=== PATIENT | male | born 1955 | race Caucasian/White ===

== ENCOUNTER 2016-09-04 20:02 | Emergency (ER) | payer OTHER ==
[~2016-09-04] VITALS: Ht 170.2 cm; Wt 165.0 kg
[2016-09-04 20:13] VITALS: BP 144/100; PULSE 102; RESP 16; O2SAT 98
--- NOTE | 2016-09-04 21:17 | ED.REPORT ---
HPI-General Illness Date of Service Sep 04, 2016 ED Provider: Smith Sanchez MD 61 year old male with a history of BPH who presents to the ED due to urinary retention. Pt has been getting up in the middle of the night with urinary urgency, but has been unable to urinate. He has severe pain secondary to the retention. Pt is currently being seen by his PCP and is being prescribed Flomax for this. Pt recently finished a course of antibiotics for UTI. He has also been taking AZO pills. Nursing Notes Stated Complaint: CANT URINATE Chief Complaint: Male Abdominal Pain Nursing Notes Reviewed: Yes Allergies: Uncoded Allergies: ERYTHROMYCIN (Allergy, Intermediate, shaking, 09/04/16) Scheduled PRN Oxybutynin Chloride (Oxybutynin Chloride) 5 Mg Tablet 5 MG PO TID PRN PRN For Spasm General Time Seen by MD: 20:20 Chief Complaint Other (urinary retention) Hx Obtained From: Patient, Spouse Arrived By: Walk-in Sudden in Onset?: No Symptom Duration: Intermittent Location: : Abdomen Quality: Painful Severity: Current: Severe Associated with: Denies: Cough, Shortness of breath Pertinent Negative: Relieved by nothing Recent Healthcare: Recent doctor visit Past Medical History Past Medical History BPH Past Surgical History None reported Smoking History Never Smoker Social History Alcohol Use: Denies alcohol use Drug Use: Denies drug use Other Social History: Good social support, Ambulatory Status Independent Review of Systems Full Review of Systems Constitutional: Denies: Chills, Fever Respiratory: Denies: Dyspnea on exertion, Non-productive cough, Shortness of breath Cardiovascular: Denies: Chest pain, Edema GI: Reports: Abdominal pain, Denies: Nausea, Vomiting Male: Reports Urinary urgency, Reports Urination decreased (retention), Denies Dysuria, Denies Hematuria Skin: Denies Diaphoresis, Denies Rash Neurologic: Denies: Change LOC Complete sys rev & neg: except as marked. Physical Exam Vital Signs Vital Signs Date Time Temp Pulse Resp B/P Pulse Ox O2 Delivery O2 Flow Rate FiO2 09/04/16 22:43 138/98 09/04/16 22:03 74 18 152/93 95 Room Air 09/04/16 20:13 36.6 102 16 144/100 98 Room Air Initial VS: Reviewed General/Constitutional: Well-developed, Well-nourished Head / Eyes: Atraumatic, Normocephalic, PERRL ENT: Mucous membranes moist, Conjunctiva normal, No scleral icterus Neck: Supple, Non-tender, Full range of motion Respiratory: Breath sounds normal, Clear to auscultation, No respiratory distress Cardiovascular: Regular rate & rhythm, Heart sounds normal, Intact distal pulses Abdomen / GI: Soft (No suprapubic tenderness), Non-tender, No guarding, No rebound, No distention Back: No CVA tenderness Extremities: Vascular intact, Neuro intact Skin: Warm, Dry, No cyanosis Neurologic: Alert, Oriented, Nonfocal Psychiatric: Mood/affect normal, Behavior normal, Normal thought content Male Genitourinary: Inspection NL (circumsized), Penis NL, No penile discharge , No meatal blood Morgan placed in good position Interpretation & Diagnostics Lab Results Interpretation Test 09/04/16 20:39 Hold Urine Received (Received) General Lab Results Interp 1: Labs reviewed Re-Eval/Medical Decision Med Decision/Clinical Course 61 year old male with a history of BPH who presents to the ED due to urinary retention. Pt has been getting up in the middle of the night with urinary urgency, but has been unable to urinate. He has severe pain secondary to the retention over the last 24 hours. On arrival the patient is borderline tachycardic though afebrile, he appears quite uncomfortable. Morgan catheter was placed and greater than 1 L of urine was drained from his bladder. He reported immediate relief of his symptoms. His tachycardia resolved. Urinalysis demonstrated no findings of UTI. Overall presentation was consistent with bladder outlet obstruction. He is now voiding using Morgan catheter. The patient is already established urologist and will call tomorrow for an appointment. Serial abdominal examinations were benign and there are no findings suggestive of acute surgical intra-abdominal process. I do not feel that further workup or imaging studies are immediately indicated. Will likely require cystoscopy and additional workup for etiologies of his L obstruction. Postreduction precautions were reviewed in detail and he was discharged in good condition with indwelling Morgan catheter in place. Oxybutynin was provided for bladder spasms. Source of Hx: Old records Summary of Info: CT KUB IMPRESSION from earlier today 09/04/16: 1. No renal stone or hydronephrosis. 2. Large posterior left urinary bladder diverticulum. There is circumferential wall thickening involving the ostium of the diverticulum which could be due to nondistention versus infiltrating process. Please correlate with clinical and urinalysis data. 3. The appendix is normal. 4. Colonic diverticulosis without evidence of diverticulitis. 5. No free fluid or air. 6. No dilated loops of bowel. Dictated by: Tamara Romero MD, PhD on 09/04/2016 at 14:47 Time of Eval: 22:04 Re-Evaluation/Progress Note: 1.5 L after morgan was placed. Pain improved. Discussed plan for discharge and follow up. All questions addressed. Counseled Regarding: Diagnosis, Lab results, Need for follow-up, When/why to return to ED Discharge & Departure Primary Impression: Urinary retention Additional Impressions: Bladder outlet obstruction Abdominal pain Abdominal location: lower abdomen Qualified Code: R10.30 - Lower abdominal pain, unspecified Tachycardia History of BPH Disposition: Home Discharge Condition All VS Reviewed: Yes Condition: Improved Patient Instructions: Urinary Retention in Men (ED) Additional Instructions: Thank you for seeking care at [facility] emergency room. It is difficult for us to make definitive diagnoses in the ED but we believe that you are experiencing urinary retention. Our primary goal today in the ED was to evaluate you for any life-threatening conditions. Your evaluation was reassuring. There was no sign of UTI. You will be discharged with a prescription for Oxybutynin. This should help with bladder spasm. You should call the urologist tomorrow to schedule an appointment this week. You will need to keep the catheter in until you follow up with the urologist. You should return to the ED immediately if you develop fevers, vomiting, cough , shortness of breath, chest pain, lightheadedness, weakness or any other concerning signs or symptoms. Thank you for letting us partake in your care today. Referrals: [facility] (PCP) Cass Thorpe MD Scribe Attestation Portions of this note were transcribed by Amira Joseph. I, (Dr. Sanchez) personally performed the history, physical exam and medical decision-making; I reviewed and confirmed the accuracy of the information in the transcribed note. Signed by: Amira Joseph. 09/04/2016, 3794 copies to: Cass Thorpe MD; [facility] Smith Sanchez MD Sep 04, 2016 21:17 Amira Joseph Sep 04, 2016 22:16
[2016-09-04 22:03] VITALS: BP 152/93; PULSE 74; RESP 18; O2SAT 95
[2016-09-04] MEDS ORDERED: OXYB5TAB10 PO (22:17)
[2016-09-04 22:43] VITALS: BP 138/98
== END 2016-09-04 22:44 | disposition home or self-care (01) ==
LOC: SED 20:02
DX: R33.9 Retention of urine, unspecified (principal); N32.0 Bladder-neck obstruction; R10.30 Lower abdominal pain, unspecified; R00.0 Tachycardia, unspecified; Z87.438 Personal history of other diseases of male genital organs; Z87.440 Personal history of urinary (tract) infections

== ENCOUNTER 2016-09-25 12:25 | Emergency (ER) | payer OTHER ==
[~2016-09-25 12:25] MED LIST: OXYB5TAB10 PO
[2016-09-25 12:28] VITALS: BP 147/97; PULSE 79; RESP 14; O2SAT 98
--- NOTE | 2016-09-25 12:38 | ED.REPORT ---
HPI-General Illness Date of Service Sep 25, 2016 ED Provider: Balwinder is an otherwise healthy 61-year-old male with a chief complaint of blood in his urine. He currently wears a Silver catheter because of urinary retention. He woke this morning to notice a significant amount of bright red urine and blood clots in the bag. He reports some stinging sensation when he urinates, and has noticed a small amount of blood around the meatus of his penis. He was seen in this department approximately 3 weeks ago, when the first Silver was placed. He was actually seen by her scheduled urology, placed on tamsulosin. He was taken off Tamsulosin due to side effects about 2 weeks ago. Seen subsequently at the [place] approximately 4 days ago. They confirmed that he has enlarged prostate, advised him to continue using the Silver and arranged cystoscopy on the . He has a history in 2010 of cystoscopy that revealed diverticulum. Denies fever, chills, malaise, abdominal pain, back pain , trauma. Nursing Notes Stated Complaint: BLOOD IN URINE Chief Complaint: Male Abdominal Pain Nursing Notes Reviewed: Yes Allergies: Uncoded Allergies: ERYTHROMYCIN (Allergy, Intermediate, shaking, 09/04/16) Scheduled Ciprofloxacin (Ciprofloxacin) 500 Mg Tablet 500 MG PO BID General Time Seen by MD: 12:38 Chief Complaint Other Past Medical History Past Medical History BPH Past Surgical History None reported Smoking History Never Smoker Social History Alcohol Use: Denies alcohol use Drug Use: Denies drug use Other Social History: Good social support, Ambulatory Status Independent Review of Systems General: Denies fever, chills, malaise. HEENT: Denies congestion, headache, sore throat. Respiratory: Denies dyspnea, cough, shortness of breath, wheezing. Cardiovascular: Denies chest pain, palpitations. Gastrointestinal: Denies vomiting, diarrhea, abdominal pain. Genitourinary: Admits hematuria, dysuria Otherwise as noted in HPI. Physical Exam General: Well appearing, well developed, well nourished, no acute distress. Head: Atraumatic, normocephalic. Eyes: No scleral icterus or injection. No discharge. Vision grossly intact. ENT: Voice clear, hearing grossly intact. Respiratory: Regular rate and rhythm. Breath sounds present, clear to auscultation and equal bilaterally. Cardiovascular: Regular rate and rhythm, without murmur, gallop or rub. No pedal edema. Gastrointestinal: Abdomen flat and non-tender without guarding or rebound. Bowel sounds normoactive. Skin: Warm and dry. Genitourinary: Normal circumcised penis, without lesions or discharge. Normal testes descended bilaterally without tenderness or mass Neurological: Grossly nonfocal. Psychological: Alert and oriented. Speech appropriate, linear and logical. Behavior appropriate. Vital Signs Vital Signs Date Time Temp Pulse Resp B/P Pulse Ox O2 Delivery O2 Flow Rate FiO2 09/25/16 17:48 78 17 141/69 99 Room Air 09/25/16 12:28 37 79 14 147/97 98 Room Air Initial VS: Reviewed Interpretation & Diagnostics Lab Results Interpretation Result Diagram: 09/25/16 1346 09/25/16 1346 Test 09/25/16 13:46 09/25/16 16:01 White Blood Count 10.1th/mm3 (3.8-10.1) Red Blood Count 5.18mil/mm3 (4.40-5.80) Hemoglobin 15.8g/dL (13.8-17.2) Hematocrit 47.7% (41.0-50.0) Mean Corpuscular Volume 92.1fL (81-100) Mean Corpuscular Hemoglobin 30.5pg (27.0-35.0) Mean Corpuscular Hemoglobin Concent 33.1% (32.0-37.0) Red Cell Distribution Width 12.0% (12.3-15.4) Platelet Count 230bil/L (150-400) Neutrophils (%) (Auto) 80.4% (40-74) Lymphocytes (%) (Auto) 11.2% (14-46) Monocytes (%) (Auto) 6.5% (4-12) Eosinophils (%) (Auto) 1.5% (0-5) Basophils (%) (Auto) 0.2% (0-3) Sodium Level 138mEq/L (134-144) Potassium Level 4.9mEq/L (3.5-5.2) Chloride Level 98mEq/L (97-108) Carbon Dioxide Level 25mmol/L (18-29) Blood Urea Nitrogen 15mg/dL (6-24) Creatinine 1.22mg/dL (0.76-1.27) Estimat Glomerular Filtration Rate 65mL/min (>59) Glucose Level 92mg/dL (60-99) Calcium Level 9.0mg/dL (8.5-10.1) Total Bilirubin 0.4mg/dL (0.0-1.2) Aspartate Amino Transf (AST/SGOT) 17U/L (0-50) Alanine Aminotransferase (ALT/SGPT) 11U/L (0-44) Alkaline Phosphatase 56U/L (25-160) Total Protein 7.0g/dL (6.4-8.4) Albumin 4.4g/dL (3.4-5.0) Hold Tompkins Top Tube Received (Received) Urine Color Bloody (YELLOW) Urine Appearance Cloudy (CLEAR,HAZY) Urine pH 6.5 (5.0-8.0) Urine Specific [place] 1.015 (1.003-1.035) Urine Protein 300mg/dL (NEG,TRACE) Urine Glucose (UA) 100mg/dL (NEGATIVE) Urine Ketones 15mg/dL (NEGATIVE) Urine Occult Blood Large (NEGATIVE) Urine Nitrite Positive (NEGATIVE) Urine Bilirubin Negative (NEGATIVE) Urine Urobilinogen 4.0mg/dL (NORMAL) Urine Leukocyte Esterase Large (NEGATIVE) Urine RBC 11-50/hpf (0-2) Urine WBC 11-50/hpf (0-5) Urine Epithelial Cells None/hpf (NONE-MOD) Urine Crystals None seen (NONE SEEN) Urine Bacteria Few/hpf (NONE-FEW) Urine Hyaline Casts None/lpf (NONE) Urine Granular Casts None seen (NONE SEEN) Urine Waxy Casts None seen (NONE SEEN) Urine Red Blood Cell Casts None seen (NONE SEEN) Urine White Blood Cell Casts None seen (NONE SEEN) Urine Mucus Present (None Seen) Urine Trichomonas None seen (NONE SEEN) Urine Yeast None (NONE SEEN) Urinalysis Comment None Urine Culture Reflexed Indicated Re-Eval/Medical Decision Med Decision/Clinical Course 61-year-old male presents with chief complaint of speech area. He noticed blood and clots in his leg bag when he woke this morning. He uses a Silver catheter due to an enlarged prostate, which is being treated by the [place] urology. He admits to a sensation of burning as the bag is draining, denies fever, chills, back pain, abdominal pain. Physical exam is reassuring including examination of his penis and testicles. There continues to be blood in his leg bag. CBC and CMP are within acceptable limits, urinalysis is suggestive of a urinary tract infection. I recognize that this may simply represent contamination of the Silver, however I think it is reasonable to treat for UTI. I do not see any indication of kidney injury or infection. We irrigated the catheter with 1 L of normal saline, which produced several more small clots. Afterwards his hematuria seems to have lightened. I gave a prescription for ciprofloxacin, a referral for local urology follow-up and advised him to keep his appointment for a cystoscope in one week. Patient agrees with the plan and is very for discharge. Discharge & Departure Primary Impression: Urinary tract infection Urinary tract infection type: catheter-associated UTI Encounter type: initial encounter Qualified Code: T83.51XA - Infection and inflammatory reaction due to indwelling urinary catheter, initial encounter Disposition: Home Discharge Condition All VS Reviewed: Yes Condition: Stable Patient Instructions: How to Care for Your Silver Catheter (ED) Additional Instructions: Evaluation in emergency department for blood in your urine. Urinalysis reveals a possible urinary tract infection though this may in fact be simply a contaminated Silver. I feel it is reasonable to go and treat you for a urinary tract infection. I will write a prescription for antibiotics to be taken for 1 week. We also flushed your catheter here in the emergency department and got several small clots out. Unfortunately there still seems to be a little bit of blood in your urine. Please follow-up with your urologist at [facility] as soon as possible, and go in for your cystoscope 13th as planned. Return to emergency department for any new or worsening symptoms including increasing pain , fever, malaise. Referrals: Cass Thorpe MD EDSupervising Provider for APC: Smith Sanchez MD Attending Statement Attending attestation: I saw this patient in conjunction with Aniket Ceballos PA-C. Patient was discussed in detail and I agree with the workup, evaluation, treatment and disposition. Smith Sanchez MD copies to: Cass Thorpe MD; [facility] Smith Sanchez MD Sep 25, 2016 12:38 Aniket Ceballos PA-C Sep 25, 2016 13:31
[2016-09-25 13:56] LABS: BASOPHILS % (AUTO) 0.2 % (0-3); EOSINOPHILS % (AUTO) 1.5 % (0-5); MONOCYTES % (AUTO) 6.5 % (4-12); Mean Corpuscular Hemoglobin 30.5 pg (27.0-35.0); Mean Corpuscular Volume 92.1 fL (81-100); NEUTROPHILS % (AUTO) 80.4 % (40-74); Platelet Count 230 bil/L (150-400)
[2016-09-25 16:48] LABS: APPEARANCE,URINE CLOUDY (CLEAR,HAZY); COLOR,URINE BLOODY (YELLOW); PH,URINE 6.5 (5.0-8.0)
[2016-09-25 16:49] LABS: OCCULT BLOOD,URINE LARGE (NEGATIVE)
[2016-09-25] MEDS ORDERED: CIPR-198 PO (17:30)
[2016-09-25 17:48] VITALS: BP 141/69; PULSE 78; RESP 17; O2SAT 99
== END 2016-09-25 17:49 | disposition home or self-care (01) ==
LOC: SED 12:25
DX: T83.511A Infection and inflammatory reaction due to indwelling urethral catheter, initial encounter (principal); Y84.6 Urinary catheterization as the cause of abnormal reaction of the patient, or of later complication, without mention of misadventure at the time of the procedure; Y93.89 Activity, other specified; Y92.89 Other specified places as the place of occurrence of the external cause; Y99.8 Other external cause status; N39.0 Urinary tract infection, site not specified; B96.89 Other specified bacterial agents as the cause of diseases classified elsewhere; Z87.438 Personal history of other diseases of male genital organs